=== PATIENT | male | born 1965 | race Caucasian/White ===

== ENCOUNTER 2020-11-11 22:52 | Emergency (ER) | payer OTHER ==
[~2020-11-11] VITALS: Ht 177.8 cm; Wt 75.0 kg
[2020-11-11] MEDS ORDERED: NS 1,000 ML IV ONE (23:00)
[2020-11-11] MEDS ORDERED: ASPI81CH33 PO (23:08)
[2020-11-11] MEDS ORDERED: GABA-845 PO (23:08)
[2020-11-11 23:20] LABS: BASO # 0.1 10^3/uL (0.0-0.2); BASO % 1.3 % (0.0-1.0); EOS # 0.3 10^3/uL (0.0-0.5); HEMATOCRIT 56.6 % (42.0-52.0); HEMOGLOBIN 19.5 g/dl (13.5-17.5); LYMPH # 5.2 10^3/uL (1.5-5.0); LYMPH % 48.1 % (24.0-44.0); MEAN CORPUSCULAR HEMOGLOBIN 33.8 pg (27.0-33.0); MEAN CORPUSCULAR HGB CONC 34.5 g/dl (32.0-36.5); MEAN CORPUSCULAR VOLUME 98.1 fl (80.0-96.0); MONO # 0.7 10^3/uL (0.0-0.8); MONO % 6.7 % (0.0-5.0); NEUTROPHILS # 4.4 10^3/uL (1.5-8.5); NEUTROPHILS % 40.4 % (36.0-66.0); PLATELET COUNT, AUTOMATED 313 10^3/uL (150-450); RED BLOOD COUNT 5.77 10^6/uL (4.30-6.10)
[2020-11-11 23:25] LABS: WHITE BLOOD COUNT 10.8 10^3/uL (4.0-10.0)
[2020-11-11 23:27] VITALS: BP 159/94
[2020-11-11 23:28] LABS: INR 0.98; PROTHROMBIN TIME 13.2 SECONDS (12.5-14.3)
[2020-11-11 23:29] LABS: PARTIAL THROMBOPLASTIN TIME 29.5 SECONDS (24.2-38.5)
--- NOTE | 2020-11-11 23:40 | REPVR ---
PROCEDURE INFORMATION: Exam: XR Chest, 1 View Exam date and time: 11/11/2020 10:55 PM Age: 55 years old Clinical indication: Chest pain; Type not specified TECHNIQUE: Imaging protocol: XR of the chest Views: 1 view. COMPARISON: No relevant prior studies available. FINDINGS: Lungs: Mild atelectasis in the left lung base. Nonspecific 2.3 x 1.3 cm nodular opacity in the left lung base. Right lung is clear. Pleural space: No pleural effusion. No pneumothorax. Heart/Mediastinum: Unremarkable. No cardiomegaly. Diaphragm: Mild elevation of the left hemidiaphragm. Bones/joints: Healed fracture of the left clavicle. IMPRESSION: Mild atelectasis and nonspecific oval nodular opacity in the left lung base. Consider CT follow-up or short-term radiographic follow-up. Electronically signed by: Prabhu Craven On 11/11/2020 23:40:06 PM
[2020-11-12 00:02] LABS: BLOOD UREA NITROGEN 6 MG/DL (7-18); CALCIUM LEVEL 8.4 MG/DL (8.5-10.1); CARBON DIOXIDE LEVEL 26 MEQ/L (21-32); CHLORIDE LEVEL 106 MEQ/L (98-107); CK-MB VALUE MASS 2.3 NG/ML (<3.6); CPK CREATINE PHOSPHOKINASE 161 U/L (39-308); CREATININE FOR GFR 0.95 MG/DL (0.70-1.30); ETHYL ALCOHOL (ETHANOL) 0.372 % (0.000-0.010); GLOMERULAR FILTRATION RATE > 60.0 (>56); GLUCOSE, FASTING 92 MG/DL (70-100); MB/CK RELATIVE INDEX 1.43 (< OR =4); SODIUM LEVEL 142 MEQ/L (136-145); TROPONIN I < 0.02 NG/ML (< 0.10)
[2020-11-12 00:15] VITALS: BP 120/95
[2020-11-12] MEDS ORDERED: ZOFR4TAB16 PO (00:16)
--- NOTE | 2020-11-12 05:35 | ECGEPIP ---
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
[2020-11-13] MEDS ORDERED: LOPR1TAB6 PO (19:06)
[2020-11-13] MEDS ORDERED: ASPI81CH33 PO (19:06)
== END 2020-11-12 00:45 | disposition home or self-care (01) ==
LOC: M ED 22:52
DX: I48.91 Unspecified atrial fibrillation (principal); Z79.899 Other long term (current) drug therapy; Z79.82 Long term (current) use of aspirin; F10.10 Alcohol abuse, uncomplicated; F17.210 Nicotine dependence, cigarettes, uncomplicated
CPT/HCPCS: 36415; 71045; 80048; 82550; 82553; 85025; 85610; 85730; 93005; 93041; 94760; 99285; G0480

== ENCOUNTER 2020-11-13 17:49 | Emergency (ER) | payer OTHER ==
[~2020-11-13] VITALS: Ht 167.6 cm; Wt 68.2 kg
[~2020-11-13 17:49] MED LIST: ASPI81CH33 PO; GABA-845 PO; ZOFR4TAB16 PO
--- OUTSIDE RECORDS SUMMARY | 2020-11-13 17:54 | CCD ---
Author Author [facility] Organization [facility] Address Unknown Phone Unavailable Care Team Providers Care Mortgage Protection Specialist Name Role Phone Sancrown, Maysae SENIOR SSIS DEVELOPER Unavailable Unavailable Sancrown, Maysae SENIOR SSIS DEVELOPER Unavailable Unavailable Sancrown, Maysae SENIOR SSIS DEVELOPER Unavailable Unavailable Sancrown, Maysae SENIOR SSIS DEVELOPER Unavailable Unavailable Sancrown, Maysae SENIOR SSIS DEVELOPER Unavailable Unavailable Sancrown, Maysae SENIOR SSIS DEVELOPER Unavailable Unavailable Sancrown, Maysae SENIOR SSIS DEVELOPER Unavailable Unavailable Sancrown, Maysae SENIOR SSIS DEVELOPER Unavailable Unavailable Sancrown, Maysae SENIOR SSIS DEVELOPER Unavailable Unavailable Sancrown, Maysae SENIOR SSIS DEVELOPER Unavailable Unavailable Sancrown, Maysae SENIOR SSIS DEVELOPER Unavailable Unavailable Sancrown, Maysae SENIOR SSIS DEVELOPER Unavailable Unavailable Sancrown, Maysae SENIOR SSIS DEVELOPER Unavailable Unavailable Sancrown, Maysae SENIOR SSIS DEVELOPER Unavailable Unavailable Sancrown, Maysae SENIOR SSIS DEVELOPER Unavailable Unavailable Sancrown, Maysae SENIOR SSIS DEVELOPER Unavailable Unavailable Sancrown, Maysae SENIOR SSIS DEVELOPER Unavailable Unavailable Sancrown, Maysae SENIOR SSIS DEVELOPER Unavailable Unavailable Sancrown, Maysae SENIOR SSIS DEVELOPER Unavailable Unavailable Sancrown, Maysae SENIOR SSIS DEVELOPER Unavailable Unavailable Sancrown, Maysae SENIOR SSIS DEVELOPER Unavailable Unavailable Sancrown, Maysae SENIOR SSIS DEVELOPER Unavailable Unavailable Sancrown, Maysae SENIOR SSIS DEVELOPER Unavailable Unavailable Sancrown, Maysae SENIOR SSIS DEVELOPER Unavailable Unavailable Sancrown, Maysae SENIOR SSIS DEVELOPER Unavailable Unavailable Sancrown, Maysae SENIOR SSIS DEVELOPER Unavailable Unavailable Sancrown, Maysae SENIOR SSIS DEVELOPER Unavailable Unavailable Sancrown, Maysae SENIOR SSIS DEVELOPER Unavailable Unavailable Sancrown, Maysae SENIOR SSIS DEVELOPER Unavailable Unavailable Sancrown, Maysae SENIOR SSIS DEVELOPER Unavailable Unavailable Sancrown, Maysae SENIOR SSIS DEVELOPER Unavailable Unavailable Sancrown, Maysae SENIOR SSIS DEVELOPER Unavailable Unavailable Sancrown, Maysae SENIOR SSIS DEVELOPER Unavailable Unavailable Sancrown, Maysae SENIOR SSIS DEVELOPER Unavailable Unavailable Sancrown, Maysae SENIOR SSIS DEVELOPER Unavailable Unavailable Sancrown, Maysae SENIOR SSIS DEVELOPER Unavailable Unavailable Sancrown, Maysae SENIOR SSIS DEVELOPER Unavailable Unavailable Sancrown, Maysae SENIOR SSIS DEVELOPER Unavailable Unavailable Sancrown, Maysae SENIOR SSIS DEVELOPER Unavailable Unavailable Re-disclosure Warning The records that you are about to access may contain information from federally-assisted alcohol or drug abuse programs. If such information is present, then the following federally mandated warning applies: This information has been disclosed to you from records protected by federal confidentiality rules (42 CFR part 2). The federal rules prohibit you from making any further disclosure of this information unless further disclosure is expressly permitted by the written consent of the person to whom it pertains or as otherwise permitted by 42 CFR part 2. A general authorization for the release of medical or other information is NOT sufficient for this purpose. The Federal rules restrict any use of the information to criminally investigate or prosecute any alcohol or drug abuse patient.The records that you are about to access may contain highly sensitive health information, the redisclosure of which is protected by Article 27-F of the [facility] Public Health law. If you continue you may have access to information: Regarding HIV / AIDS; Provided by facilities licensed or operated by the [facility] Office of Mental Health; or Provided by the [facility] Office for People With Developmental Disabilities. If such information is present, then the following [facility] mandated warning applies: This information has been disclosed to you from confidential records which are protected by state law. State law prohibits you from making any further disclosure of this information without the specific written consent of the person to whom it pertains, or as otherwise permitted by law. Any unauthorized further disclosure in violation of state law may result in a fine or usp sentence or both. A general authorization for the release of medical or other information is NOT sufficient authorization for further disc losure. Allergies and Adverse Reactions Type Description Substance Reaction Status Data Source(s ) SYSTEMIC NO KNOWN ALLERGIES NO KNOWN ALLERGIES [facility] Family History Family Member Name Family Member Gender Family Member Status Date o f Status Description Data Source(s) Unknown Male Problem MEDENT ([facility]) Unknown Male Problem 03/27/1943 12:00:00 AM -04:00 MEDENT ([facility]) 08/2014 Unknown Unknown Problem MEDENT ([facility]) Unknown Unknown Problem MEDENT ([facility]) Encounters Encounter Providers Location Date Indications Data Source(s ) Attender: Loco White NP 2E-MAYRA 12/30/2019 03:26:1 5 PM EST [facility] Medications Medication Brand Name Start Date Product Form Dose Route Admi nistrative Instructions Pharmacy Instructions Status Indications Reaction Description Data Source(s) 100 mg 10/04/2020 12:00:00 AM EST tablet extended release 24 hr 30 TAKE ONE TABLET BY MOUTH EVERY DAY TAKE ONE TABLET BY MOUTH EVERY DAY SOLD: 10/05/2020 [facility] 1 % 09/17/2020 12:00:00 AM EST cream 45 APPLY TOPICALLY TO AFFECTED AREA(S) TWO TIMES A DAY APPLY TOPICALLY TO AFFECTED AREA(S) TWO TIMES A DAY SO LD: 10/05/2020 [facility] 1 % 09/01/2020 12:00:00 AM EST cream 45 USE 1 APPLICATION TOPICALLY TO AFFECTED AREA TWO TIMES A DAY FOR 28 DAYS USE 1 APPLICATION TOPICALLY TO AFFECTED AREA TWO TIMES A DAY FOR 28 DAYS SOLD: 09/03/2020 [facility] 400 mg 09/01/2020 12:00:00 AM EST capsule 180 TAKE TWO CAPSULES BY MOUTH THREE TIMES A DAY TAKE TWO CAPSULES BY MOUTH THREE TIMES A DAY SOLD: 0 [facility] 100 mg 09/01/2020 12:00:00 AM EST tablet extended release 24 hr 30 TAKE ONE TABLET BY MOUTH EVERY DAY TAKE ONE TABLET BY MOUTH EVERY DAY SOLD: 09/03/2020 [facility] 400 mg 09/01/2020 12:00:00 AM EST capsule 180 TAKE TWO CAPSULES BY MOUTH THREE TIMES A DAY TAKE TWO CAPSULES BY MOUTH THREE TIMES A DAY SOLD: 0 [facility] 81 mg 09/01/2020 12:00:00 AM EST tablet,delayed release (DR/EC) 30 TAKE ONE TABLET BY MOUTH EVERY DAY TAKE ONE TABLET BY MOUTH EVERY DAY SOLD: 09/03/2020 [facility] 81 mg 09/01/2020 12:00:00 AM EST tablet,delayed release (DR/EC) 30 TAKE ONE TABLET BY MOUTH EVERY DAY TAKE ONE TABLET BY MOUTH EVERY DAY SOLD: 10/05/2020 [facility] 800 mg 06/12/2020 12:00:00 AM EDT tablet 100 TAKE ONE TABLET BY MOUTH THREE TIMES A DAY WITH FOOD OR MILK NEEDED TAKE ONE TABLET BY MOUTH THREE TIMES A DAY WITH FOOD OR MILK NEEDED SOLD: 06/12/2020 [facility] 400 mg 06/08/2020 12:00:00 AM EDT capsule 180 TAKE TWO CAPSULES BY MOUTH THREE TIMES A DAY TAKE TWO CAPSULES BY MOUTH THREE TIMES A DAY SOLD: 0 [facility] 1 mg 06/08/2020 12:00:00 AM EDT tablet 30 TAKE ONE TABLET BY MOUTH EVERY DAY TAKE ONE TABLET BY MOUTH EVERY DAY SOLD: 06/12/2020 [facility] 90 mcg/actuation 06/08/2020 12:00:00 AM EDT HFA aerosol inha ler 18 INHALE 2 PUFFS BY MOUTH EVERY 6 HOURS NEEDED INHALE 2 PUFFS BY MOUTH EVERY 6 HOURS NEEDED SOLD: 06/12/2020 [facility] 400 mg 06/08/2020 12:00:00 AM EDT capsule 180 TAKE TWO CAPSULES BY MOUTH THREE TIMES A DAY TAKE TWO CAPSULES BY MOUTH THREE TIMES A DAY SOLD: 0 [facility] 81 mg 05/28/2020 12:00:00 AM EDT tablet,delayed release (DR/EC) 30 TAKE ONE TABLET BY MOUTH EVERY DAY TAKE ONE TABLET BY MOUTH EVERY DAY SOLD: 06/12/2020 [facility] MULTIVITAMIN 05/27/2020 12:00:00 AM EDT tablet 30 TAKE ONE TABLET BY MOUTH EVERY DAY TAKE ONE TABLET BY MOUTH EVERY DAY SOLD: 06/12/2020 [facility] Insurance Providers Payer name Policy type / Coverage type Policy ID Covered constitution party ID Covered constitution party's relationship to ruffin Policy Ruffin Plan Information [facility] [id number] TAURUS [id number] Self [id number] [place] [id number] TAURUS [id number] [place] [id number] Self [id number] TAURUS [id number] Patient [id number] [place] (Med[place] Commercial [id number] Self [id number] [place] Commercial [id number] Self [id number] [place] [id number] Self [id number] [place] [id number] Self [id number] [place] [id number] Self [id number] ev-social BAILEY [id number] SELF [id number] TAURUS [id number] SELF [id number] [place] Commercial [id number] Self [id number] [place] [id number] Self [id number] TAURUS [id number] SELF [id number] [place] Commercial [id number] Self [id number] [place] Commercial [id number] Self [id number] [place] Commercial [id number] Self [id number] [place] [id number] Self [id number] [place] CARE HEA [id number] S [id number] [place] Commercial [id number] Self [id number] [place] Commercial [id number] Self [id number] MEDICAID [id number] Patient [id number] TAURUS [id number] Patient [id number] [place] CARE HEA [id number] Medicaid [facility] Part B Self [place] Medicaid [facility] Part B Self [place] Commercial Self [place] [facility] (O) Self TAURUS CARE HEA [id number] SE [id number] Medicaid [facility] Part B Self MEDICAID HEA [id number] SE [id number] SELF PAY UNAVAILABLE Patient UNAVAILA BLE SELF PAY NOT FUNMILAYO GANDHI Patient NOT MA Kaykay LIG TAURUS [id number] Patient [id number] SELF PAY SELF PAY Patient SELF PAY TOTAL CARE/TODAY'S OPTIONS O [id number] S [id number] TOTAL CARE O [id number] S [id number] SELF PAY 2 UNAVAILABLE 1 UNAVAILA BLE [employer] 2 [id number] [employer] 2 [id number] 1 [id number] TOTAL CARE MEDICAID 2 [id number] [place] 3 [id number] TOTAL CARE W [id number] MEDICAID GME W [id number] [employer] 2 [id number] 1 [id number]
[2020-11-13] MEDS ORDERED: METOPROLOL TART 50 MG TAB PO ONE (18:15)
[2020-11-13] MEDS ORDERED: ONDANSETRON 4MG/2ML VIAL IV ONE (18:15)
[2020-11-13] MEDS ORDERED: NS 1,000 ML IV ONE (18:15)
[2020-11-13] MEDS ORDERED: PANTOPRAZOLE 40MG VIAL (C9113 PER 1) IV ONE (18:15)
--- OUTSIDE RECORDS SUMMARY | 2020-11-13 18:17 | CCD ---
Author Author [facility] Organization [facility] Address Unknown Phone Unavailable Care Team Providers Care Deck Supervisor Name Role Phone Sancrown, Maysae SKI LIFT ATTENDANT Unavailable Unavailable Sancrown, Maysae SKI LIFT ATTENDANT Unavailable Unavailable Sancrown, Maysae SKI LIFT ATTENDANT Unavailable Unavailable Sancrown, Maysae SKI LIFT ATTENDANT Unavailable Unavailable Sancrown, Maysae SKI LIFT ATTENDANT Unavailable Unavailable Sancrown, Maysae SKI LIFT ATTENDANT Unavailable Unavailable Sancrown, Maysae SKI LIFT ATTENDANT Unavailable Unavailable Sancrown, Maysae SKI LIFT ATTENDANT Unavailable Unavailable Sancrown, Maysae SKI LIFT ATTENDANT Unavailable Unavailable Sancrown, Maysae SKI LIFT ATTENDANT Unavailable Unavailable Sancrown, Maysae SKI LIFT ATTENDANT Unavailable Unavailable Sancrown, Maysae SKI LIFT ATTENDANT Unavailable Unavailable Sancrown, Maysae SKI LIFT ATTENDANT Unavailable Unavailable Sancrown, Maysae SKI LIFT ATTENDANT Unavailable Unavailable Sancrown, Maysae SKI LIFT ATTENDANT Unavailable Unavailable Sancrown, Maysae SKI LIFT ATTENDANT Unavailable Unavailable Sancrown, Maysae SKI LIFT ATTENDANT Unavailable Unavailable Sancrown, Maysae SKI LIFT ATTENDANT Unavailable Unavailable Sancrown, Maysae SKI LIFT ATTENDANT Unavailable Unavailable Sancrown, Maysae SKI LIFT ATTENDANT Unavailable Unavailable Sancrown, Maysae SKI LIFT ATTENDANT Unavailable Unavailable Sancrown, Maysae SKI LIFT ATTENDANT Unavailable Unavailable Sancrown, Maysae SKI LIFT ATTENDANT Unavailable Unavailable Sancrown, Maysae SKI LIFT ATTENDANT Unavailable Unavailable Sancrown, Maysae SKI LIFT ATTENDANT Unavailable Unavailable Sancrown, Maysae SKI LIFT ATTENDANT Unavailable Unavailable Sancrown, Maysae SKI LIFT ATTENDANT Unavailable Unavailable Sancrown, Maysae SKI LIFT ATTENDANT Unavailable Unavailable Sancrown, Maysae SKI LIFT ATTENDANT Unavailable Unavailable Sancrown, Maysae SKI LIFT ATTENDANT Unavailable Unavailable Sancrown, Maysae SKI LIFT ATTENDANT Unavailable Unavailable Sancrown, Maysae SKI LIFT ATTENDANT Unavailable Unavailable Sancrown, Maysae SKI LIFT ATTENDANT Unavailable Unavailable Sancrown, Maysae SKI LIFT ATTENDANT Unavailable Unavailable Sancrown, Maysae SKI LIFT ATTENDANT Unavailable Unavailable Sancrown, Maysae SKI LIFT ATTENDANT Unavailable Unavailable Sancrown, Maysae SKI LIFT ATTENDANT Unavailable Unavailable Sancrown, Maysae SKI LIFT ATTENDANT Unavailable Unavailable Sancrown, Maysae SKI LIFT ATTENDANT Unavailable Unavailable Re-disclosure Warning The records that [...] is protected by Article 27-F of the [facility] Public Health law. If you continue you may have access to information: Regarding HIV / AIDS; Provided by facilities licensed or operated by the [facility] Office of Mental Health; or Provided by the [facility] Office for People With Developmental Disabilities. If such information is present, then the following [facility] mandated warning applies: This information has [...] SYSTEMIC NO KNOWN ALLERGIES NO KNOWN ALLERGIES [facility] Family History Family Member Name Family Member Gender Family Member Status Date o f Status Description Data Source(s) Unknown Male Problem MEDENT ([facility]) Unknown Male Problem 03/27/1943 12:00:00 AM -04:00 MEDENT ([facility]) 08/2014 Unknown Unknown Problem MEDENT ([facility]) Unknown Unknown Problem MEDENT ([facility]) Encounters Encounter Providers Location Date Indications Data Source(s ) Attender: Loco White NP 2E-MAYRA 12/30/2019 03:26:[address] [facility] Medications Medication Brand Name Start Date Product [...] party ID Covered constitution party's relationship to moore Policy Moore Plan Information TAURUS [id number] SP [id number] TAURUS [id number] SP [id number] TAURUS [id number] Self [id number] [place] [id number] TAUR[place] [id number] [place] [id number] Self [id number] TAURUS [id number] Patient [id number] [place] (Medicaid Commercial [id number] Self [id number] [place] [employer] [place] Commercial [id number] Self [id number] [place] Commercial [id number] Self [id number] [place] Commercial [id number] Self [id number] [place] Commercial [id number] Self [id number] Cleanify BAILEY [id number] SELF [id number] TAURUS [id number] SELF [id number] [place] Commercial [id number] Self [id number] [place] Commercial [id number] Self [id number] TAURUS [id number] SELF [id number] [place] Commercial [id number] Self [id number] [place] Commercial [id number] Self [id number] [place] Commercial [id number] Self [id number] [place] Commercial [id number] Self [id number] TA[place] CARE HEA [id number] S [id number] [place] [employer] [place] Commercial [id number] Self [id number] [place] Commercial [id number] Self [id number] MEDICAID [id number] Patient [id number] TAURUS [id number] Patient [id number] TA[place] CARE HEA [id number] Medicaid [facility] Part B Self [place] Medicaid [facility] Part B Self [place] Commercial Self [place] Health Maintenance [employer] (HMO) Self TA[place] CARE HEA [id number] SE [id number] Medicaid [facility] Part B Self MEDICAID HEA [id number] SE [id number] SELF PAY UNAVAILABLE Patient UNAVAILA BLE SELF PAY NOT MA SANTAG Patient NOT MA E LIG TAURUS [id number] Patient [id number] SELF PAY SELF PAY Patient SELF PAY TOTAL CARE/TODAY'S OPTIONS O [id number] S [id number] TOTAL CARE O [id number] S [id number] SELF PAY 2 UNAVAILABLE 1 UNAVAILA BLE [employer] 2 [id number] [employer] 2 [id number] TOTAL CARE MEDICAID 2 [id number] [place] 3 [id number] TOTAL CARE W [id number] S [id number] MEDICAID GME W [id number] K [employer] 2 [id number]
[2020-11-13] MEDS: METOPROLOL 5 MG/5 ML VIAL IV SCH ×3 (18:18→19:22)
[2020-11-13 18:20] LABS: BASO # 0.1 10^3/uL (0.0-0.2); BASO % 1.2 % (0.0-1.0); EOS # 0.2 10^3/uL (0.0-0.5); EOS % 2.1 % (0.0-3.0); HEMATOCRIT 53.8 % (42.0-52.0); HEMOGLOBIN 18.1 g/dl (13.5-17.5); LYMPH # 4.3 10^3/uL (1.5-5.0); LYMPH % 38.4 % (24.0-44.0); MEAN CORPUSCULAR HEMOGLOBIN 33.5 pg (27.0-33.0); MEAN CORPUSCULAR HGB CONC 33.6 g/dl (32.0-36.5); MEAN CORPUSCULAR VOLUME 99.6 fl (80.0-96.0); MONO # 0.7 10^3/uL (0.0-0.8); MONO % 6.5 % (0.0-5.0); NEUTROPHILS # 5.7 10^3/uL (1.5-8.5); NEUTROPHILS % 51.4 % (36.0-66.0); PLATELET COUNT, AUTOMATED 246 10^3/uL (150-450); WHITE BLOOD COUNT 11.1 10^3/uL (4.0-10.0)
[2020-11-13 18:30] LABS: INR 0.99; PROTHROMBIN TIME 13.3 SECONDS (12.5-14.3)
[2020-11-13 19:01] LABS: ALBUMIN 3.3 GM/DL (3.2-5.2); ALT/SGPT 47 U/L (12-78); BILIRUBIN,DIRECT 0.2 MG/DL (0.0-0.2); BILIRUBIN,TOTAL 0.6 MG/DL (0.2-1.0); BLOOD UREA NITROGEN 7 MG/DL (7-18); CALCIUM LEVEL 8.3 MG/DL (8.5-10.1); CARBON DIOXIDE LEVEL 25 MEQ/L (21-32); CHLORIDE LEVEL 106 MEQ/L (98-107); CREATININE FOR GFR 0.98 MG/DL (0.70-1.30); ETHYL ALCOHOL (ETHANOL) 0.455 % (0.000-0.010); GLOMERULAR FILTRATION RATE > 60.0 (>56); GLUCOSE, FASTING 84 MG/DL (70-100); LIPASE 73 U/L (73-393); POTASSIUM SERUM 4.1 MEQ/L (3.5-5.1); SODIUM LEVEL 141 MEQ/L (136-145); TOTAL PROTEIN 7.5 GM/DL (6.4-8.2)
[2020-11-13] MEDS ORDERED: LOPR1TAB6 PO (19:06)
[2020-11-13] MEDS ORDERED: ASPI81CH33 PO (19:06)
--- NOTE | 2020-11-13 19:21 | REP ---
INDICATION: abd pain. COMPARISON: None. TECHNIQUE: Supine and erect views the abdomen are performed, as well as a frontal view of the chest. FINDINGS: There is no evidence of free intraperitoneal air. There are mildly dilated small bowel loops in the upper abdomen. There is mild air scattered throughout the colon. Mild air is seen in the nondistended stomach. Vascular calcifications are seen in the pelvis. There are mild degenerative changes of the spine. There is mild elevation of left hemidiaphragm. There appears to be mild bibasilar fibro atelectatic change. Heart mediastinum are unremarkable. IMPRESSION: No free air. Several mildly dilated small bowel loops in the upper abdomen. This may represent an ileus but some degree of small bowel obstruction cannot totally be excluded. <Electronically signed by Aaron Desai > 11/13/201916
[2020-11-13 19:22] VITALS: BP 117/79
[2020-11-13] MEDS ORDERED: METOCLOPRAMIDE INJ 10MG/2ML VIAL (J2765 PER 1) IV ONE (19:45)
[2020-11-13] MEDS ORDERED: LORazepam 2 MG/ML VIAL IV STA (19:48)
[2020-11-13 22:15] VITALS: BP 105/61
== END 2020-11-13 23:00 | disposition left against medical advice (07) ==
LOC: MERGE 17:49 → M ED 17:49
DX: F10.129 Alcohol abuse with intoxication, unspecified (principal); R10.9 Unspecified abdominal pain; Z53.9 Procedure and treatment not carried out, unspecified reason; F17.200 Nicotine dependence, unspecified, uncomplicated; Z79.82 Long term (current) use of aspirin; Z79.899 Other long term (current) drug therapy
CPT/HCPCS: 74021; 80048; 80076; 83690; 85025; 85610; 93041; 96361; 96374; 96375; 99284; C9113; G0480; J2060; J2405; J2765

== ENCOUNTER 2021-01-19 22:39 | Emergency (ER) | payer OTHER ==
[~2021-01-19] VITALS: Ht 180.3 cm; Wt 85.0 kg
[~2021-01-19 22:39] MED LIST changes: +LOPR1TAB6 PO
[2021-01-19] MEDS ORDERED: METOPROLOL TART 50 MG TAB PO ONE (23:00)
[2021-01-19] MEDS ORDERED: NS 1,000 ML IV ONE (23:00)
[2021-01-19] MEDS: METOPROLOL 5 MG/5 ML VIAL IV SCH ×3 (23:22→23:46)
[2021-01-19 23:26] LABS: BASO # 0.1 10^3/uL (0.0-0.2); BASO % 1.3 % (0.0-1.0); EOS # 0.4 10^3/uL (0.0-0.5); HEMATOCRIT 50.8 % (42.0-52.0); HEMOGLOBIN 17.2 g/dl (13.5-17.5); LYMPH # 4.7 10^3/uL (1.5-5.0); LYMPH % 46.7 % (24.0-44.0); MEAN CORPUSCULAR HEMOGLOBIN 33.1 pg (27.0-33.0); MEAN CORPUSCULAR HGB CONC 33.9 g/dl (32.0-36.5); MEAN CORPUSCULAR VOLUME 97.7 fl (80.0-96.0); MONO # 0.8 10^3/uL (0.0-0.8); MONO % 8.1 % (2.0-8.0); NEUTROPHILS % 39.2 % (36.0-66.0); PLATELET COUNT, AUTOMATED 295 10^3/uL (150-450); WHITE BLOOD COUNT 10.1 10^3/uL (4.0-10.0)
--- NOTE | 2021-01-19 23:44 | REPVR ---
PROCEDURE INFORMATION: Exam: XR Chest Exam date and time: 01/19/2021 11:12 PM Age: 55 years old Clinical indication: Other: Chest pain TECHNIQUE: Imaging protocol: XR of the chest Views: 1 view. COMPARISON: CR Abdomen,Flat Upright,PA CHEST 2020-11-13 18:11 FINDINGS: Lungs: Left basilar trace subsegmental atelectasis and or effusion. Pleural spaces: No pneumothorax. Heart/Mediastinum: Unremarkable. No cardiomegaly. Bones/joints: Unremarkable. IMPRESSION: Left basilar trace subsegmental atelectasis and or effusion. Electronically signed by: Don Muñoz On 01/19/2021 23:44:14 PM
[2021-01-20] MEDS ORDERED: LORazepam 2 MG/ML VIAL IV STA (00:05)
[2021-01-20] MEDS: METOPROLOL 5 MG/5 ML VIAL IV SCH ×3 (00:10→00:17)
[2021-01-20 00:17] VITALS: BP 115/85
[2021-01-20 00:17] LABS: BLOOD UREA NITROGEN 6 MG/DL (7-18); CALCIUM LEVEL 8.3 MG/DL (8.5-10.1); CARBON DIOXIDE LEVEL 29 MEQ/L (21-32); CHLORIDE LEVEL 107 MEQ/L (98-107); CK-MB VALUE MASS 1.8 NG/ML (<3.6); CPK CREATINE PHOSPHOKINASE 136 U/L (39-308); CREATININE FOR GFR 0.83 MG/DL (0.70-1.30); ETHYL ALCOHOL (ETHANOL) 0.342 % (0.000-0.010); FREE T4 0.89 NG/DL (0.76-1.46); GLOMERULAR FILTRATION RATE > 60.0 (>56); GLUCOSE, FASTING 92 MG/DL (70-100); MAGNESIUM LEVEL 2.2 MG/DL (1.8-2.4); MB/CK RELATIVE INDEX 1.32 (< OR =4); POTASSIUM SERUM 4.1 MEQ/L (3.5-5.1); SODIUM LEVEL 142 MEQ/L (136-145)
[2021-01-20] MEDS ORDERED: DIGOXIN INJ 0.5 MG/2 ML AMP (J1160) IV ONE (01:15)
--- NOTE | 2021-01-20 02:12 | ECGEPIP ---
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
[2021-01-20] MEDS ORDERED: DIGOXIN 0.125 MG TAB PO ONE ×2 (02:40→04:50)
[2021-01-20 04:40] VITALS: BP 106/76
[2021-01-20] MEDS ORDERED: LOPR1TAB6 PO (05:39)
== END 2021-01-20 06:12 | disposition home or self-care (01) ==
LOC: M ED 22:39
DX: I48.91 Unspecified atrial fibrillation (principal); F10.220 Alcohol dependence with intoxication, uncomplicated; F43.10 Post-traumatic stress disorder, unspecified; F17.200 Nicotine dependence, unspecified, uncomplicated; R91.8 Other nonspecific abnormal finding of lung field; Z91.14 Patient's other noncompliance with medication regimen; Z96.653 Presence of artificial knee joint, bilateral
CPT/HCPCS: 71045; 80048; 82077; 82550; 82553; 83735; 84439; 84443; 85025; 93005; 93041; 94760; 96361; 96374; 96375; 99291; J1160; J2060

== ENCOUNTER 2021-05-19 15:07 | Inpatient (IN) | payer OTHER ==
[~2021-05-19] VITALS: Ht 180.3 cm; Wt 77.4 kg
[~2021-05-19 15:07] MED LIST changes: +GABA-283 PO; -GABA-845 PO
[2021-05-19] MEDS ORDERED: NS 1,000 ML IV ONE (15:40)
[2021-05-19] MEDS ORDERED: LIDOCAINE 2% 5ML JELLY UROJET TOP ONE (15:40)
--- NOTE | 2021-05-19 15:54 | REP ---
INDICATION: stroke like symptoms. COMPARISON: None. TECHNIQUE: CT BRAIN PERFORMED IN THE AXIAL PLANE. CORONAL RECONSTRUCTION IMAGES ARE PERFORMED. FINDINGS: . lateral ventricles are midline symmetric mildly prominent as are the 3rd and 4th ventricles there is diffuse cerebral atrophy which is much greater than I would expect for his stated age in this is greatest in the temporal and frontal lobes. 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 There are multiple zones of hypodensity in the bilateral cerebellar hemispheres consistent with encephalomalacia and old infarcts. I do not see vascular territory infarct, intracranial hemorrhage, mass effect or edema. Heterogeneous low-attenuation white matter changes bilaterally are consistent with chronic small vessel ischemic disease. No intra or extra-axial hemorrhage, mass or mass effect identified. There is no posterior fossa hemorrhage or mass. Basal cisterns are intact. There are vascular calcifications in the carotid siphons, heavier right than left. Mastoid aeration grossly symmetric and without opacification. The visualized sinuses show some mucosal thickening on the right maxillary and left sphenoid air cells. Skull base and calvarium are without fracture or focal lesion. Some deviation of the nasal septum towards the left. IMPRESSION: 1. 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 No vascular territory or other acute infarct, intracranial hemorrhage, mass or mass effect. 2. Ventriculomegaly with proportionate atrophy although that atrophy is much greater than I would expect for the stated age. 3. Right maxillary and left sphenoid sinus mucosal thickening with the other sinuses and mastoids clear. Skull base and calvarium without acute finding. <Electronically signed by Herbert Quinteros > 05/19/21 [id number]
[2021-05-19 16:10] LABS: HEMATOCRIT 56.6 % (42.0-52.0); HEMOGLOBIN 19.6 g/dl (13.5-17.5); MEAN CORPUSCULAR HEMOGLOBIN 33.7 pg (27.0-33.0); MEAN CORPUSCULAR HGB CONC 34.6 g/dl (32.0-36.5); MEAN CORPUSCULAR VOLUME 97.3 fl (80.0-96.0); PLATELET COUNT, AUTOMATED 262 10^3/uL (150-450); RED BLOOD COUNT 5.82 10^6/uL (4.30-6.10)
--- NOTE | 2021-05-19 16:30 | REP ---
INDICATION: Altered Mental Status. COMPARISON: 01/19/2021 TECHNIQUE: AP portable semi-erect FINDINGS: Lungs only marginally adequate in the degree of inflation. There is some curvilinear atelectatic change above the left diaphragm which is slightly elevated as before. No definite effusion on the right. Some blunting of the left CP angle, could be scar or small effusion. The mid and upper lung zones are clear. There is no cardiomegaly, vascular redistribution or pulmonary edema. The aorta is normal for age. There is no widening of the mediastinum. Airway intact. Visualized bones show minor degenerative changes at the shoulders and spine. No free air under the diaphragm. IMPRESSION: 1. Curvilinear fibrotic or atelectatic change in the left base just above the diaphragm, not present on previous study 4 months ago. No dense consolidation, definite effusion, cardiomegaly or edema. 2. Minor degenerative changes without acute bony finding. No free air under the diaphragm. <Electronically signed by Herbert Quinteros > 05/19/21 [id number]
[2021-05-19] MEDS ORDERED: ISOVUE-370 76% 100ML VIAL As Ordered ONE (16:41)
[2021-05-19 16:44] LABS: ACETAMINOPHEN LEVEL < 2.0 UG/ML (10.0-30.0); ALBUMIN 2.8 GM/DL (3.2-5.2); ALT/SGPT 27 U/L (12-78); BILIRUBIN,DIRECT 0.6 MG/DL (0.0-0.2); BILIRUBIN,TOTAL 1.6 MG/DL (0.2-1.0); BLOOD UREA NITROGEN 16 MG/DL (7-18); CALCIUM LEVEL 8.2 MG/DL (8.5-10.1); CARBON DIOXIDE LEVEL 21 MEQ/L (21-32); CHLORIDE LEVEL 107 MEQ/L (98-107); CREATININE FOR GFR 1.07 MG/DL (0.70-1.30); ETHYL ALCOHOL (ETHANOL) 0.004 % (0.000-0.010); GLOMERULAR FILTRATION RATE > 60.0 (>56); GLUCOSE, FASTING 85 MG/DL (70-100); POTASSIUM SERUM 3.7 MEQ/L (3.5-5.1); SALICYLATE LEVEL < 1.7 MG/DL (5.0-30.0); SODIUM LEVEL 143 MEQ/L (136-145); THYROID STIMULATING HORMONE 0.937 uIU/ML (0.358-3.740); TOTAL PROTEIN 7.2 GM/DL (6.4-8.2)
[2021-05-19 17:01] LABS: WHITE BLOOD COUNT 17.5 10^3/uL (4.0-10.0)
[2021-05-19 17:10] LABS: RSV AMPLIFICATION NEGATIVE (NEGATIVE)
[2021-05-19 17:11] LABS: INR 1.16; PROTHROMBIN TIME 15.1 SECONDS (12.5-14.3)
[2021-05-19 17:12] LABS: PARTIAL THROMBOPLASTIN TIME 29.3 SECONDS (24.2-38.5)
[2021-05-19 17:13] LABS: LYMPHOCYTES 13 % (16-44); NEUTROPHILS 75 % (28-66)
[2021-05-19 17:14] LABS: ATYPICAL LYMPH 5 % (0-5); MONOCYTES 6 % (0-5); PLATELET ESTIMATE NORMAL (NORMAL)
[2021-05-19 17:24] LABS: AMPHETAMINES LEVEL URINE NEGATIVE (NEGATIVE); BARBITURATES URINE NEGATIVE (NEGATIVE); BENZODIAZEPINES URINE NEGATIVE (NEGATIVE); CANNABINOIDS URINE NEGATIVE (NEGATIVE); COCAINE METABOLITE URINE NEGATIVE (NEGATIVE); METHADONE URINE NEGATIVE (NEGATIVE); OPIATES URINE NEGATIVE (NEGATIVE); PHENCYCLIDINE URINE NEGATIVE (NEGATIVE)
[2021-05-19 17:25] LABS: CPK CREATINE PHOSPHOKINASE 1828 U/L (39-308); MB/CK RELATIVE INDEX 0.82 (< OR =4); TROPONIN I < 0.02 NG/ML (< 0.10)
--- NOTE | 2021-05-19 17:41 | REPVR ---
PROCEDURE INFORMATION: Exam: CT Angiography Neck With Contrast Exam date and time: 05/19/2021 4:59 PM Age: 55 years old Clinical indication: Other: CVA; Additional info: CVA - nursing interventions must not delay CT TECHNIQUE: Imaging protocol: Computed tomography angiography of the neck with contrast. 3D rendering (Not supervised by radiologist): MIP and/or 3D reconstructed images were created by the technologist. Radiation optimization: All CT scans at this facility use at least one of these dose optimization techniques: automated exposure control; mA and/or kV adjustment per patient size (includes targeted exams where dose is matched to clinical indication); or iterative reconstruction. Contrast material: ISOVUE 370; Contrast volume: 75 ml; Contrast route: INTRAVENOUS (IV); COMPARISON: CT Spine,cervical w/o contrast 05/19/2021 4:39 PM FINDINGS: Right common carotid artery: No stenosis. No dissection or occlusion. Right internal carotid artery: Atherosclerotic calcifications are present at the right carotid bifurcation and within the proximal right internal carotid artery. This is causing approximately 40% stenosis of the right ICA origin. Right external carotid artery: There is severe stenosis of the right external carotid artery origin. Left common carotid artery: There is mild narrowing of the distal left common carotid artery. Left internal carotid artery: Atherosclerotic calcifications are present at the left carotid bifurcation and within the proximal left internal carotid artery. This is causing approximately 25% stenosis. Left external carotid artery: There is critical stenosis and near occlusion of the left external carotid artery origin. Right vertebral artery: The right vertebral artery is severely hypoplastic. No flow is identified in the distal right vertebral artery beginning at the C1 level. Left vertebral artery: No stenosis. No dissection or occlusion. Left subclavian artery: Mild/moderate atherosclerotic narrowing of the left subclavian artery origin is present. There is nonocclusive clot floating within the lumen of the proximal left subclavian artery. Soft tissues: Normal. No significant soft tissue swelling. Bones/joints: Moderate degenerative changes of the cervical spine are present. Lungs: Mild centrilobular emphysema is present in the upper lobes. IMPRESSION: 1. Nonocclusive clot floating within the lumen of the proximal left subclavian artery. 2. No flow is identified in the distal right vertebral artery beginning at the C1 level. 3. Chronic findings as discussed above. REFERENCES: NASCET CRITERIA. The degree of internal carotid artery stenosis is based on NASCET criteria. Normal is no stenosis. Mild is less than 50% stenosis. Moderate is 50-69% stenosis. Severe is 70% to 99% stenosis. Total occlusion is no detectable patent lumen. Electronically signed by: Ruslan Zepeda On 05/19/2021 17:40:24 PM
[2021-05-19] MEDS ORDERED: NS 1,550 ML in IV 1 EA IV ONE (17:45)
[2021-05-19] MEDS ORDERED: PIPERACILLIN/TAZOBACTAM SOD 4.5 GM in D5W MINI-BAG PLUS 50 ML IV ONE (17:45)
--- NOTE | 2021-05-19 17:48 | REPVR ---
PROCEDURE INFORMATION: Exam: CT Angiography Head With Contrast, Arteriography Exam date and time: 05/19/2021 4:59 PM Age: 55 years old Clinical indication: Other: CVA; Additional info: CVA - nursing interventions must not delay CT TECHNIQUE: Imaging protocol: Computed tomography angiography of the head with contrast. Exam focused on the arteries. 3D rendering (Not supervised by radiologist): MIP and/or 3D reconstructed images were created by the technologist. Radiation optimization: All CT scans at this facility use at least one of these dose optimization techniques: automated exposure control; mA and/or kV adjustment per patient size (includes targeted exams where dose is matched to clinical indication); or iterative reconstruction. Contrast material: ISOVUE 370; Contrast volume: 75 ml; Contrast route: INTRAVENOUS (IV); COMPARISON: CT Head without contrast 05/19/2021 3:25 PM FINDINGS: ANTERIOR CIRCULATION: Right internal carotid artery: Atherosclerotic calcifications are seen involving the right cavernous internal carotid artery. There is no significant stenosis. No occlusion or aneurysm. Right middle cerebral artery: Unremarkable. No occlusion or significant stenosis. No aneurysm. Right anterior cerebral artery: Unremarkable. No occlusion or significant stenosis. No aneurysm. Left internal carotid artery: Atherosclerotic calcifications are seen involving the left cavernous internal carotid artery. There is no significant stenosis. No occlusion or aneurysm. Left middle cerebral artery: Unremarkable. No occlusion or significant stenosis. No aneurysm. Left anterior cerebral artery: Unremarkable. No occlusion or significant stenosis. No aneurysm. POSTERIOR CIRCULATION: Right vertebral artery: There is occlusion of the distal right vertebral artery. Left vertebral artery: Slow flow is identified in the distal left vertebral artery. Basilar artery: There is occlusion of the basilar artery. Minor collateral flow is present in the basilar tip. Right posterior cerebral artery: The right posterior cerebral artery is patent, supplied by a right posterior communicating artery. Left posterior cerebral artery: The left posterior cerebral artery is patent, supplied by a left posterior communicating artery. IMPRESSION: 1. Occluded basilar artery. Collateral flow is present in the basilar tip and bilateral posterior cerebral arteries. 2. Occluded distal right vertebral artery 3. THIS REPORT CONTAINS FINDINGS THAT MAY BE CRITICAL TO PATIENT CARE. The findings were verbally communicated via telephone conference with KATIUSKA ARVIZU at 5:47 PM EDT on 05/19/2021. The findings were acknowledged and understood. Electronically signed by: Ruslan Zepeda On 05/19/2021 17:47:48 PM
--- NOTE | 2021-05-19 17:52 | REPVR ---
PROCEDURE INFORMATION: Exam: CT Cervical Spine Without Contrast Exam date and time: 05/19/2021 4:59 PM Age: 55 years old Clinical indication: Other: CVA; Additional info: CVA - nursing interventions must not delay CT TECHNIQUE: Imaging protocol: Computed tomography images of the cervical spine without contrast. Radiation optimization: All CT scans at this facility use at least one of these dose optimization techniques: automated exposure control; mA and/or kV adjustment per patient size (includes targeted exams where dose is matched to clinical indication); or iterative reconstruction. COMPARISON: CT Head without contrast 05/19/2021 3:25 PM FINDINGS: Bones/joints: No acute fracture. Normal alignment. Discs/Spinal canal/Neural foramina: Severe degenerative changes of the cervical spine are present. There is at least moderate spinal canal stenosis at C3-C4 and C5-C6. Multilevel neural foraminal narrowing from uncinate spurring and facet arthropathy is noted. Lungs: Lung apices are normal. Vasculature: Atherosclerotic calcifications are present at the carotid bifurcations. Soft tissues: Unremarkable. IMPRESSION: 1. No acute abnormality. 2. Chronic findings as discussed above. Electronically signed by: Ruslan Zepeda On 05/19/2021 17:51:59 PM
[2021-05-19 18:29] LABS: HEPATITIS B SURFACE ANTIGEN NEGATIVE (NEGATIVE)
[2021-05-19] MEDS ORDERED: COMMENTS (18:47)
[2021-05-19] MEDS ORDERED: ASPI81TA26 PO (18:47)
[2021-05-19] MEDS ORDERED: METO50TA7 PO (18:47)
[2021-05-19] MEDS ORDERED: HOME MED LIST COMPLETE! XX SCH (18:50)
[2021-05-19 18:59] LABS: HIV SCREEN CENTAUR SOURCE NEGATIVE (NEGATIVE)
[2021-05-19] MEDS ORDERED: NS 2,000 ML IV ONE (19:10)
[2021-05-19] MEDS ORDERED: GLUCOSE 4GM CHEW TABLET PO PRN (19:20)
[2021-05-19] MEDS ORDERED: DEXTROSE 50% 50 ML SYRINGE IV PRN (19:20)
[2021-05-19] MEDS ORDERED: GLUCAGON INJ 1MG VIAL SC PRN (19:20)
[2021-05-19] MEDS ORDERED: diltiaZEM 125 MG in NS 100 ML IV SCH ×2 (20:30→23:22)
--- NOTE | 2021-05-19 21:00 | IPNPDOC ---
Date Seen The patient was seen on 05/19/21. Progress Note EMERGENCY CONTACT INFORMATION: may give HIPAA-protected medical information to the following family members: SON-scooter carter [phone] EX-()-godfrey carter [phone] GIRLFRIEND-Sonia Razo-[phone] CODE STATUS: DO NOT RESUSCITATE/DO NOT INTUBATE MOLST FORM SIGNED BY SON VS, I&O, 24H, Fishbone Vital Signs/I&O Vital Signs Date Time Temp Pulse Resp B/P (MAP) Pulse Ox O2 Delivery O2 Flow Rate FiO2 05/19/21 20:19 100.9 28 96 Nasal Cannula 2.0 05/19/21 20:15 132 121/61 (81) Laboratory Data 24H LABS Laboratory Tests 2 05/19/21 15:46: POC Glucose (Misc Panel) 96, POC Sodium (Misc Panel) 142, POC Potassium (Misc Panel) 3.6, POC Chloride (Misc Panel) 102, POC Total CO2 (Misc Panel) 21.0L, POC Blood Urea Nitrogen (Misc Panel 18, POC Ionized Calcium (Misc Panel) 4.2L, POC Creatinine (Misc Panel) 1.0, POC Hematocrit (Misc Panel) 58.0H 05/19/21 15:51: Prothrombin Time 15.1H, Prothromb Time International Ratio 1.16, Activated Partial Thromboplast Time 29.3 05/19/21 15:53: Neutrophils (%) (Auto) , Nucleated Red Blood Cells % (auto) 0.0, Neutrophils 75H, Band Neutrophils 1, Lymphocytes (Manual) 13L, Monocytes (Manual) 6H, Atypical Lymphocytes 5, Platelet Estimate NORMAL, Urine Color MEMO, Urine Appearance HAZY, Urine pH 5.0, Urine Specific [place] 1.020, Urine Protein NEGATIVE, Urine Glucose (UA) NEGATIVE, Urine Ketones TRACEH, Urine Blood NEGATIVE, Urine Nitrite NEGATIVE, Urine Bilirubin 1+H, Urine Urobilinogen 4.0H, Urine Leukocyte Esterase NEGATIVE, Urine WBC (Auto) 2, Urine RBC (Auto) 3, Urine Hyaline Casts (Auto) 7, Urine Bacteria (Auto) NEGATIVE, Urine Squamous Epithelial Cells 0, Urine Mucus (Auto) MODERATE, Urine Sperm (Auto) , Anion Gap 15, Glomerular Filtration Rate > 60.0, Lactic Acid Level 2.7*H, Calcium Level 8.2L, Total Bilirubin 1.6H, Direct Bilirubin 0.6H, Aspartate Amino Transf (AST/SGOT) 62H, Alanine Aminotransferase (ALT/SGPT) 27, Alkaline Phosphatase 95, Ammonia 17, Total Creatine Kinase 1828H, Creatine Kinase MB 15.0H, Creatine Kinase MB Relative Index 0.82, Troponin I < 0.02, Total Protein 7.2, Albumin 2.8L, Albumin/Globulin Ratio 0.6, Thyroid Stimulating Hormone (TSH) 0.937, Salicylates Level < 1.7L, Urine Opiates Screen NEGATIVE, Urine Methadone Screen NEGATIVE, Acetaminophen Level < 2.0L, Urine Barbiturates Screen NEGATIVE, Urine Phencyclidine Screen NEGATIVE, Urine Amphetamines Screen NEGATIVE, Urine Benzodiazepines Screen NEGATIVE, Urine Cocaine Metabolite Screen NEGATIVE, Urine Cannabinoids Screen NEGATIVE, Ethyl Alcohol Level 0.004, Coronavirus (COVID- 19)(PCR) NEGATIVE, Hepatitis B Surface Antigen NEGATIVE, Hepatitis C Antibody Index 0.0, HIV Antigen/Antibody Combo Qual NEGATIVE, Influenza Type A (RT-PCR) NEGATIVE, Influenza Type B (RT-PCR) NEGATIVE, Respiratory Syncytial Virus (PCR) NEGATIVE 05/19/21 15:56: POC Total CO2 (Misc Panel) 19.0L, POC pH (Misc Panel) 7.413, POC Base Excess (Misc Panel) -7.0L, POC Saturated Percent O2 (Misc) 98, POC pO2 (Misc Panel) 101.0, POC pCO2 (Misc Panel) 28.1L, POC HCO3 (Misc Panel) 17.9L 05/19/21 17:55: POC Prothrombin Time (Misc) 15.9H, POC INR (Misc) 1.3 05/19/21 20:03: CBC/BMP Laboratory Tests 05/19/21 15:53 Microbiology Microbiology 05/19/21 Blood Culture, Received Pending 05/19/21 Blood Culture, Received Pending CORAL SLOAN MD May 19, 2021 21:00
[2021-05-19] MEDS ORDERED: D5W/0.45% SODIUM CHLORIDE 1,000 ML IV SCH (21:30)
[2021-05-19] MEDS ORDERED: ACETAMINOPHEN 650 MG SUPP PR PRN (21:55)
[2021-05-19] MEDS: VANCOMYCIN HCL 1,000 MG, VIAL MATE ADAPTER 1 EACH in NS 250 ML IV SCH (22:00)
[2021-05-19 22:04] VITALS: BP 146/82
--- NOTE | 2021-05-19 22:41 | HPEPDOC ---
[facility] Medical History & Physical Date of Admission May 19, 2021 Date of Service: May 19, 2021 History and Physical CHIEF COMPLAINT: Unresponsive HISTORY OF PRESENT ILLNESS: Patient is unresponsive Information obtained from previous medical records and patient's girlfriend Sonia Razo [phone] 55-year-old male with history of chronic atrial fibrillation noncompliant with anticoagulation and rate control medications, COPD not oxygen or steroid- dependent, heavy alcohol abuse, heavy smoker, anxiety, depression, was found unresponsive in his apartment by his girlfriend who stated that he was normal 2 days ago, and emergently brought in by ambulance to the ER .EKG showed atrial fibrillation with rapid ventricular response of 170 to 180 bpm, glucose was 85, ammonia of 17 with [place] Coma Scale of 6 on arrival ,only able to move his eyes spontaneously and withdraws to pain. CT of the head without contrast: Encephalomalacia in the right frontal pole from old completed infarct and multiple lucencies in bilateral cerebellar hemispheres from old infarcts no vascular territory or other acute infarct intracranial hemorrhage mass or mass- effect, ventriculomegaly with proportionate atrophy although that atrophy is much greater than I would expect for the stated age, right maxillary left sphenoid sinus mucosal thickening with other sinuses and mastoids clear skull base and calvarium without acute finding. CT angio of the head with contrast: There is occlusion of the distal right vertebral artery slow flow is identified in the distal left vertebral artery there is occlusion of the basilar artery minor collateral flow is present in the basilar tip. CT angio of the neck shows nonocclusive clot floating within the lumen of the proximal left subclavian artery. No flow is identified in the distal right vertebral artery beginning at the C1 level. Right internal carotid artery has atherosclerotic calcifications at the right carotid bifurcation and within the proximal right internal carotid artery causing approximately 40% stenosis of the right ICA origin there is severe stenosis of the right external carotid artery. There is critical stenosis and near occlusion of the left external carotid artery origin the right vertebral artery is severely hypoplastic no flow is identified in the distal right vertebral artery beginning at the C1 level. Lungs mild centrilobular emphysema is present in upper lobes. CT cervical spine no acute fracture or dislocation. This case was discussed by emergency room physician Dr. Kameron Desai with Dr. Asif Constantino neurologist on-call at [facility] as well as with [facility] in [place] stroke center with recommendations to keep the patient at [facility] since thrombectomy would not be possible and no transfer to a tertiary level of care was needed. 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 PAST MEDICAL HISTORY: chronic atrial fibrillation noncompliant with anticoagulation and rate control medications, COPD not oxygen or steroid-dependent, heavy alcohol abuse, heavy smoker, anxiety, depression PAST SURGICAL HISTORY: Bilateral knee replacement SOCIAL HISTORY: Lives alone has a girlfriend Sonia Razo [phone]. Healthcare proxy Jesus Jr John. son [phone]. Ex-/ Angela John [phone] According to patient's prior wishes MOLST form signed by patient's son Carroll Jr Destinee. DO NOT RESUSCITATE DO NOT INTUBATE FAMILY HISTORY: Unable to be obtained since the patient is unresponsive ALLERGIES: Please see below. REVIEW OF SYSTEMS: Unable to be obtained since the patient is unresponsive HOME MEDICATIONS: Please see below. PHYSICAL EXAMINATION: VITAL SIGNS: See below GENERAL APPEARANCE: [place] Coma Scale of 6. Able to open his eyes spontaneously and withdraws to pain Disheveled. No pallor or icterus. Mild distress nasal cannula. Left nasal trumpet HEENT: Face is symmetric unable to protrude his tongue and follow commands. No JVD no thyromegaly no cervical lymphadenopathy Faint right carotid bruit. CARDIOVASCULAR: S1-S2 irregularly irregular tachycardic no murmurs noted LUNGS: Diminished breath sounds bilateral rhonchi prolonged expiration ABDOMEN: Positive bowel sounds soft nontender nondistended bowel no rebound guarding no abdominal bruit EXTREMITIES: No cyanosis clubbing or pitting edema NEUROLOGICAL: Face is symmetric [place] Coma Scale of 6 able to open his eyes spontaneously and withdraws to pain but does not follow commands quadriplegic 0 out of 5 motor function bilateral upper and lower extremities positive Babinski bilaterally with upgoing toes. LABORATORY DATA: See below. IMAGING: See below MICROBIOLOGY: Please see below. ASSESSMENT: 55-year-old male with history of alcohol abuse, heavy tobacco abuse, noncompliant with anticoagulation and rate control medications for chronic a trial fibrillation, anxiety and depression, COPD not oxygen or steroid-dependent brought in by ambulance after being found unresponsive at home was last seen to be normal 2 days ago by his girlfriend. 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 CT angio of the head with contrast: There is occlusion of the distal right vertebral artery slow flow is identified in the distal left vertebral artery there is occlusion of the basilar artery minor co llateral flow is present in the basilar tip. -NPO. MRI of the brain ordered. Neurology Dr. CONSTANTINO consulted. Aspiration and seizure precautions. IV fluids for permissive hypertension to keep blood pr essure 160 to 180 mmHg. Aspirin rectally or via nasogastric tube. Neurochecks every 4 hourly. Await recommendations from neurologist regarding need for anticoagulation, antiepileptic drugs if needed. Patient is not eligible for thrombectomy per [facility] stroke [place]. Acute encephalopathy secondary to CVA -CVA management. Aspiration risk. Central line placement for now for IV fl uids, IV antibiotics, IV Cardizem drip. -Will need feeding tube and tube feedings in the future if no improvement. Check urine toxicology screen Atrial fibrillation with rapid ventricular response -IV Cardizem 20 mg bolus followed by titration of Cardizem 5 mg to 15 mg for rate control less than 100 bpm. - If needed, Increase IV fluids or may need Levophed drip to maintain systolic blood pressure greater than 160 for permissive hypertension. Sepsis -Elevated white count fever and lactic acidosis empiric antibiotics with IV Vanco and Zosyn. -Patient most likely aspirated due to CVA. Aspiration pneumonitis -Secondary to acute CVA and encephalopathy. Aspiration precautions. Empiric IV Vanco and Zosyn for sepsis. No definite consolidation on chest x-ray. -Supplemental oxygen to keep O2 sat greater than 90% head of bed elevation greater than 30 degrees -Frequent suctioning due to malclearance of secretions from CVA Malclearance of secretions -Due to CVA -Frequent suctioning -Head of bed elevation to decrease risk of recurrent aspiration -We will need a feeding tube in the future if no recovery from CVA Left subclavian artery thrombus - CT angio of the neck shows nonocclusive clot floating within the lumen of the proximal left subclavian artery. No flow is identified in the distal right vertebral artery beginning at the C1 level. Right internal carotid artery has atherosclerotic calcifications at the right carotid bifurcation and within the proximal right internal carotid artery causing approximately 40% stenosis of the right ICA origin there is severe stenosis of the right external carotid artery. There is critical stenosis and near occlusion of the left external carotid artery origin the right vertebral artery is severely hypoplastic no flow is identified in the distal right vertebral artery beginning at the C1 level. -Defer to neurologist for type of anticoagulation either intravenous heparin or Lovenox -Hypercoagulable state work-up sent -Echocardiogram with bubble study. Defer to neurologist if transesophageal echocardiogram is warranted in light of patient's poor overall prognosis. COPD, compensated -Xopenex every 4 hourly nebulizers. Alcohol abuse -DT precautions Active tobacco abuse -Nicotine patch Diet n.p.o. D5 half-normal saline at 100 mL's per hour. [employer] Negative consult TPN versus tube feeding via nasogastric tube for now. If no improvement patient may need a PEG tube DVT prophylaxis: Await recommendation from neurologist regarding anticoagulation. CODE STATUS: DO NOT RESUSCITATE DO NOT INTUBATE Healthcare proxy: Patient's son Danyel Lopez Jr.[phone]. Per patient's prior wishes and healthcare proxy' consent, HIPAA protected medical information may be shared with: Patient's girlfriend girlfriend Sonia Razo [phone]. Patient's ex-/ Angela Lopez [phone] Vital Signs Vital Signs Date Time Temp Pulse Resp B/P (MAP) Pulse Ox O2 Delivery O2 Flow Rate FiO2 05/19/21 20:19 100.9 28 96 Nasal Cannula 2.0 05/19/21 20:15 132 121/61 (81) Laboratory Data Labs 24H Laboratory Tests 2 05/19/21 15:46: POC Glucose (Misc Panel) 96, POC Sodium (Misc Panel) 142, POC Potassium (Misc Panel) 3.6, POC Chloride (Misc Panel) 102, POC Total CO2 (Misc Panel) 21.0L, POC Blood Urea Nitrogen (Misc Panel 18, POC Ionized Calcium (Misc Panel) 4.2L, POC Creatinine (Misc Panel) 1.0, POC Hematocrit (Misc Panel) 58.0H 05/19/21 15:51: Prothrombin Time 15.1H, Prothromb Time International Ratio 1.16, Activated Partial Thromboplast Time 29.3 05/19/21 15:53: Neutrophils (%) (Auto) , Nucleated Red Blood Cells % (auto) 0.0, Neutrophils 75H, Band Neutrophils 1, Lymphocytes (Manual) 13L, Monocytes (Manual) 6H, Atypical Lymphocytes 5, Platelet Estimate NORMAL, Urine Color MEMO, Urine Appearance HAZY, Urine pH 5.0, Urine Specific [place] 1.020, Urine Protein NEGATIVE, Urine Glucose (UA) NEGATIVE, Urine Ketones TRACEH, Urine Blood NEGATIVE, Urine Nitrite NEGATIVE, Urine Bilirubin 1+H, Urine Urobilinogen 4.0H, Urine Leukocyte Esterase NEGATIVE, Urine WBC (Auto) 2, Urine RBC (Auto) 3, Urine Hyaline Casts (Auto) 7, Urine Bacteria (Auto) NEGATIVE, Urine Squamous Epithelial Cells 0, Urine Mucus (Auto) MODERATE, Urine Sperm (Auto) , Anion Gap 15, Glomerular Filtration Rate > 60.0, Lactic Acid Level 2.7*H, Calcium Level 8.2L, Total Bilirubin 1.6H, Direct Bilirubin 0.6H, Aspartate Amino Transf (AST/SGOT) 62H, Alanine Aminotransferase (ALT/SGPT) 27, Alkaline Phosphatase 95, Ammonia 17, Total Creatine Kinase 1828H, Creatine Kinase MB 15.0H, Creatine K inase MB Relative Index 0.82, Troponin I < 0.02, Total Protein 7.2, Albumin 2.8L, Albumin/Globulin Ratio 0.6, Thyroid Stimulating Hormone (TSH) 0.937, Salicylates Level < 1.7L, Urine Opiates Screen NEGATIVE, Urine Methadone Screen NEGATIVE, Acetaminophen Level < 2.0L, Urine Barbiturates Screen NEGATIVE, Urine Phencyclidine Screen NEGATIVE, Urine Amphetamines Screen NEGATIVE, Urine Benzodiazepines Screen NEGATIVE, Urine Cocaine Metabolite Screen NEGATIVE, Urine Cannabinoids Screen NEGATIVE, Ethyl Alcohol Level 0.004, Coronavirus (COVID- 19)(PCR) NEGATIVE, Hepatitis B Surface Antigen NEGATIVE, Hepatitis C Antibody Index 0.0, HIV Antigen/Antibody Combo Qual NEGATIVE, Influenza Type A (RT-PCR) NEGATIVE, Influenza Type B (RT-PCR) NEGATIVE, Respiratory Syncytial Virus (PCR) NEGATIVE 05/19/21 15:56: POC Total CO2 (Misc Panel) 19.0L, POC pH (Misc Panel) 7.413, POC Base Excess (Misc Panel) -7.0L, POC Saturated Percent O2 (Misc) 98, POC pO2 (Misc Panel) 101.0, POC pCO2 (Misc Panel) 28.1L, POC HCO3 (Misc Panel) 17.9L 05/19/21 17:55: POC Prothrombin Time (Misc) 15.9H, POC INR (Misc) 1.3 05/19/21 20:03: Lactic Acid Level 3.5*H CBC/BMP Laboratory Tests 05/19/21 15:53 Microbiology Microbiology 05/19/21 Blood Culture, Received Pending 05/19/21 Blood Culture, Received Pending Home Medications Scheduled Aspirin (Aspirin EC) 81 Mg Tablet.dr, 81 MG PO DAILY Gabapentin (Gabapentin) 400 Mg Capsule, 800 MG PO TID Metoprolol Tartrate (Metoprolol Tartrate) 50 Mg Tablet, 50 MG PO DAILY Miscellaneous Medications [Comments] MED LIST MADE WITH EXTERNAL MED HISTORY Allergies Coded Allergies: No Known Allergies (Unverified , 11/11/20) A-FIB/CHADSVASC A-FIB History Current/History of A-Fib/PAF?: Yes Current PO Anticoag Therapy: No Age/Risk Factor Scoring CHADSVASC: CHADSVASC Response (Comments) Value Age Risk Factor Age < 65 years old 0 Gender Risk Factor Male 0 Hx of CHF No 0 Hx of HTN No 0 Hx of Stroke/TIA/or VTE Yes 2 Hx of Diabetes No 0 Hx of Vascular Disease Yes 1 Total 3 Treatment Treatment ordered: Heparin IV bridge Therapy CORAL SLOAN MD May 19, 2021 22:34
[2021-05-19 23:00] VITALS: BP 148/78
[2021-05-19] MEDS ORDERED: FOLIC ACID 1 MG in NS 50 ML IV SCH (23:00)
--- NOTE | 2021-05-19 23:01 | REPVR ---
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 COMPARISON: CT Head without contrast 05/19/2021 3:25 PM FINDINGS: Multiple foci of abnormal increased diffusion and decreased ADC map signal involving bilateral cerebellar hemispheres, bertin and midbrain, and punctate left occipital and left parietal centrum semiovale lesions. Abnormal gradient echo signal within the left bertin suggests that there may be an element of petechial hemorrhage. Midline structures and cerebellar tonsillar position appear normal. Ventricles, cisterns and sulci are otherwise symmetric and normal for age. No intracranial mass, midline shift or abnormal extra-axial fluid. Old small vessel right frontal lobe infarct. Mild pattern of increased T2 and flair signal in supratentorial white matter. Optic chiasm and pituitary infundibulum appear normal. Normal vascular flow voids in major intracranial arteries and dural venous sinuses. Mild pansinus mucosal thickening is present. Right mastoids are opacified. Optic globes and orbits are unremarkable. IMPRESSION: Multiple acute infarcts involving the cerebellar hemispheres, bertin and midbrain and punctate supratentorial left hemispheric vertex lesions. Possible petechial hemorrhage within the left bertin based on the gradient echo sequence. No evidence of obstructive hydrocephalus Findings were discussed by telephone with Dr. Gambino on 05/19/2021 11:00 PM EDT, to expedite further management. Electronically signed by: Mauricio Bravo On 05/19/2021 23:00:52 PM
[2021-05-19] MEDS: diltiaZEM 125 MG in NS 100 ML IV SCH (23:47)
[2021-05-20] VITALS (8 sets, daily range): BP systolic 137–164; BP diastolic 69–96
[2021-05-20] MEDS: PIPERACILLIN/TAZOBACTAM SOD 4.5 GM in D5W MINI-BAG PLUS 50 ML IV SCH ×3 (00:05→09:23)
[2021-05-20 04:55] LABS: BASO # 0.1 10^3/uL (0.0-0.2); BASO % 0.5 % (0.0-1.0); EOS % 0.1 % (0.0-3.0); HEMATOCRIT 50.3 % (42.0-52.0); HEMOGLOBIN 17.1 g/dl (13.5-17.5); LYMPH # 2.5 10^3/uL (1.5-5.0); MEAN CORPUSCULAR HEMOGLOBIN 33.9 pg (27.0-33.0); MEAN CORPUSCULAR VOLUME 99.8 fl (80.0-96.0); MONO # 2.2 10^3/uL (0.0-0.8); MONO % 14.4 % (2.0-8.0); NEUTROPHILS # 10.4 10^3/uL (1.5-8.5); NEUTROPHILS % 67.8 % (36.0-66.0); PLATELET COUNT, AUTOMATED 203 10^3/uL (150-450); RED BLOOD COUNT 5.04 10^6/uL (4.30-6.10)
[2021-05-20] MEDS: VANCOMYCIN HCL 1,000 MG, VIAL MATE ADAPTER 1 EACH in NS 250 ML IV SCH (05:07)
[2021-05-20 05:27] LABS: WHITE BLOOD COUNT 15.3 10^3/uL (4.0-10.0)
[2021-05-20 05:32] LABS: BLOOD UREA NITROGEN 15 MG/DL (7-18); CALCIUM LEVEL 7.7 MG/DL (8.5-10.1); CARBON DIOXIDE LEVEL 20 MEQ/L (21-32); CHLORIDE LEVEL 115 MEQ/L (98-107); CREATININE FOR GFR 0.87 MG/DL (0.70-1.30); GLOMERULAR FILTRATION RATE > 60.0 (>56); GLUCOSE, FASTING 97 MG/DL (70-100); MAGNESIUM LEVEL 1.9 MG/DL (1.8-2.4); POTASSIUM SERUM 3.5 MEQ/L (3.5-5.1); SODIUM LEVEL 145 MEQ/L (136-145)
[2021-05-20] MEDS: diltiaZEM 125 MG in NS 100 ML IV SCH (08:25)
[2021-05-20] MEDS ORDERED: THIAMINE 200MG/2ML VIAL (J3411 PER 100MG) IV SCH (09:00)
[2021-05-20] MEDS ORDERED: ASPIRIN 300 MG SUPP PR SCH (09:00)
[2021-05-20] MEDS ORDERED: ONDANSETRON 4MG/2ML VIAL IV PRN ×8 (09:35)
[2021-05-20] MEDS ORDERED: BISACODYL 10 MG SUPP PR PRN ×8 (09:35)
[2021-05-20] MEDS ORDERED: ATROPINE SULFATE 1% OP SOLN 2 ML BTL SL PRN ×7 (09:35)
[2021-05-20] MEDS ORDERED: SCOPOLAMINE 1MG TRANSDERMAL PATCH TOP PRN ×8 (09:35)
[2021-05-20] MEDS ORDERED: MORPHINE 2 MG/ML 1ML VIAL (J2270) IV PRN ×7 (09:35)
[2021-05-20] MEDS ORDERED: MORPHINE 10MG/0.5ML ORAL CONCENTRATE SOLUTION U/D SL PRN ×8 (09:35→17:55)
[2021-05-20] MEDS ORDERED: HYOSCYAMINE SULFATE 0.125 MG SUBL TABLET PO PRN ×8 (09:35)
[2021-05-20] MEDS ORDERED: LORazepam 2 MG/ML VIAL IV PRN ×7 (09:35)
--- NOTE | 2021-05-20 09:47 | IPNPDOC ---
Text Note Date of Service The patient was seen on 05/20/21. NOTE I spoke Danyel, the patient's son this morning. And updated him that his dad's mental and neurologic status is remained unchanged since admission. He tells me that the family's goal is keeping his dad comfortable I'm advised them pursue comfort measures only which he is in agreement with. I will also advise him that he is free to come in and visit with his dad at any time as are other family members. Patient will be made comfort measures only at this time all nonessential therapies will be discontinued VS,Fishbone, I+O VS, Fishbone, I+O Laboratory Tests 05/19/21 15:53 05/20/21 04:24 Vital Signs Date Time Temp Pulse Resp B/P (MAP) Pulse Ox O2 Delivery O2 Flow Rate FiO2 05/20/21 08:25 137/80 05/20/21 08:00 2.0 05/20/21 07:00 98.3 92 18 97 Nasal Cannula I&O- Last 24 Hours up to 6 AM 05/20/21 06:00 Intake Total 1000 ml Output Total 950 ml Balance 50 ml ANGELIKA PANDYA MD May 20, 2021 09:47
[2021-05-20] MEDS: MORPHINE 2 MG/ML 1ML VIAL (J2270) IV PRN ×3 (09:55→23:53)
[2021-05-20] MEDS: MORPHINE 10MG/0.5ML ORAL CONCENTRATE SOLUTION U/D SL PRN ×2 (13:11→15:42)
[2021-05-20] MEDS: ATROPINE SULFATE 1% OP SOLN 2 ML BTL SL PRN ×2 (15:42→23:54)
--- NOTE | 2021-05-20 17:24 | ECHO ---
ECHOCARDIOGRAM DATE OF PROCEDURE: 05/19/2021 Age: 35 Gender: Male Height: 71 inches Weight: 187 pounds Body surface area: 2.05 m2 Inpatient intensive care unit (ICU) room 3206 REFERRING PHYSICIAN: Dr. Samira Altman INDICATION: Cerebrovascular accident (CVA). MEASUREMENTS: 2D Measurements: RV - 3.4 cm LV - 4.3 cm Septum 1.2 cm Posterior wall 1.2 cm Aortic root 3.8 cm LA - 4.8 cm LVEF 65% Doppler Measurements: AV - 1.28 m/s LVOT - 1.0 m/s MV - E 59 Early mitral de-acceleration time 201 msec E prime medial 9.6 E prime lateral 10 Average E/E prime ratio 9.8/PCWP - 9.4 mmHg PV - 0.8 m/s Pulmonary artery acceleration time 113 msec RVSP 35 mmHg IVC - 1.8 cm COMMENTS: Underlying atrial fibrillation with somewhat rapid ventricular response. No intraventricular conduction disturbance. Technically difficult study, but some diagnostic useful information was still obtained. M-mode and 2-dimensional echocardiography was performed with pulse, continuous wave, color flow, and tissue Doppler studies. Borderline concentric left ventricular hypertrophy with normal wall motion. Moderately dilated left atrium with currently normal estimated mean left atrial pressure. Normal right ventricular size and motion with right atrium mildly dilated but normal inferior vena cava (IVC) size and collapse against an elevated central venous pressure. Mild pulmonary hypertension. Normal aortic dimensions. Mild aortic valvular sclerosis without functional abnormality. Mild mitral annular thickening without functional abnormality. Normal-appearing tricuspid valve with very mild insufficiency. No apparent intracardiac mass or pericardial effusion. Saline contrast study was performed from the apical 4-chamber projection using bolus injection of agitated saline into a large 4M vein. Good opacification was observed of the right heart chambers without any evidence of saline contrast to the left ventricle. Undoubtedly this patient's nonhemorrhagic cerebrovascular accident (CVA) was related to his atrial fibrillation.
--- NOTE | 2021-05-20 20:42 | CR ---
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 HISTORY OF PRESENT ILLNESS: Danyel Lopez is a 55-year-old man with history of chronic atrial fibrillation, noncompliant with anticoagulation and cardiac medications, COPD, alcohol abuse, smoking, anxiety, depression, who was found unresponsive in his apartment by his girlfriend who stated that he was last known normal two days ago. He was brought to emergency department at [facility] by EMS. EKG showed atrial fibrillation with rapid ventricular response, heart rate 170-180. Blood glucose was 85 and ammonia was 17 with GCS score of 6 upon arrival. He was only able to move his eyes vertically. He did not withdraw to pain. He was unable to move any of his extremities. Patient was unable to speak and provide any history. He was diagnosed with quadriplegia, locked-in syndrome, possible sepsis due to aspiration, atrial fibrillation with rapid ventricular response. CT scan of head reportedly showed chronic bilateral cerebellar strokes with small vessel ischemic disease of brain without acute disease. On my review, it showed subacute bilateral pontine and lower mid-brain ischemic strokes and bilateral cerebellar subacute ischemic strokes. CTA of head and neck showed occlusion of basilar artery, atherosclerosis of internal carotid arteries with severe stenosis of right external carotid artery. CT angiography of neck showed nonocclusive clot floating within the lumen of proximal left subclavian artery. I recommended for patient to have urgent MRI scan of brain and discussion with [facility] for transfer. [facility] declined transfer, stating that would not be able to add anything more to his care. Mechanical thrombectomy would not be an option. They recommended keeping patient at [facility]. Later at night, his MRI scan of brain was completed which I reviewed and confirmed my findings of CT scan of head showing bilateral pontine, lower mid-brain bilateral cerebellar, left occipital and parietal acute ischemic strokes. Anticoagulation would not help his current event. We started him on aspirin 300 mg per rectally daily until discussion is made in the daytime about comfort measures. He was DNR/DNI last night. PAST MEDICAL HISTORY: 1. Chronic atrial fibrillation, noncompliant with anticoagulation and cardiac medications. 2. Alcohol abuse. 3. Smoking. 4. Anxiety. 5. Depression. 6. COPD. 7. Bilateral knee replacement. SOCIAL HISTORY: He lives alone with his girlfriend. Patient was made DO NOT RESUSCITATE AND DO NOT INTUBATE. He is a heavy alcohol and tobacco abuser. FAMILY HISTORY: Could not be obtained. REVIEW OF SYSTEMS: Could not be obtained. ALLERGIES: None. HOME MEDICATIONS: 1. Aspirin 81 mg p.o. daily. 2. Gabapentin 800 mg p.o. t.i.d. 3. Metoprolol 50 mg p.o. daily. PHYSICAL EXAMINATION: VITAL SIGNS: Temperature 98.3, pulse 92, respiratory rate 18, blood pressure 144/74, 97% saturation on two liters nasal cannula oxygen. HEART: Irregularly irregular. LUNGS: Clear to auscultation. ABDOMEN: Nondistended. EXTREMITIES: No pedal edema. MUSCULOSKELETAL: No abnormalities. NEUROLOGICAL: Patient is awake and it is difficult to assess his mentation. He does not follow any commands. He does not withdraw to pain on the left side. He withdraws right arm and left slightly to pain. He is nonverbal. He does not speak or understand speech. His plantars are mute. Sensory, cerebellar and gait testing could not be performed. ASSESSMENT: 1. 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 2. Bilateral large anterior pontine, lower mid-brain, bilateral cerebellar, left occipital and parietal ischemic strokes resulting in above. 3. Atrial fibrillation with noncompliance to cardiac medications and anticoagulation. 4. Alcohol and tobacco abuse. PLAN: 1. After discussion with patient's healthcare proxy, the patient has rightfully been made comfort measures only. He was made DNR and DNI last night appropriately. 2. His prognosis is guarded-poor. He has very high risk of going into chronic vegetative state with continuation of medical care. The risk of permanent locked in state is very high as well.
--- NOTE | 2021-05-20 21:21 | ECGEPIP ---
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
[2021-05-21] MEDS: LORazepam 2 MG/ML VIAL IV PRN ×2 (03:14→22:49)
[2021-05-21] MEDS: ATROPINE SULFATE 1% OP SOLN 2 ML BTL SL PRN (03:16)
[2021-05-21] MEDS: MORPHINE 2 MG/ML 1ML VIAL (J2270) IV PRN ×4 (08:53→20:22)
--- NOTE | 2021-05-21 09:17 | IPNPDOC ---
Subjective Date Seen The patient was seen on 05/21/21. Subjective Chief Complaint/HPI Neuro status is unchanged this morning. Objective Physical Examination General Exam: Positive: Other (acute encephalopathy) Eye Exam: Positive: Other Eye Symptoms (PERRL) ENT Exam: Positive: Atraumatic Neck Exam: Positive: Supple Chest Exam: Positive: Rhonchi Heart Exam: Positive: Irregular Rhythm Abdomen Exam: Positive: Normal bowel sounds Skin Exam: Negative: Rash Neuro Exam: Positive: Other (nor exam is unchanged from previous day. 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 Per patient's prior wishes and healthcare proxy' consent, HIPAA protected medical information may be shared with: Patient's girlfriend girlfriend Sonia Razo [phone]. 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 All specim... ANGELIKA PANDYA MD May 21, 2021 09:17
[2021-05-22] MEDS: LORazepam 2 MG/ML VIAL IV PRN ×2 (02:41→09:42)
[2021-05-22] MEDS: ATROPINE SULFATE 1% OP SOLN 2 ML BTL SL PRN (02:41)
[2021-05-22] MEDS: MORPHINE 2 MG/ML 1ML VIAL (J2270) IV PRN (09:29)
[2021-05-22] MEDS ORDERED: LORazepam 2 MG/ML VIAL As Ordered ONE (09:38)
--- NOTE | 2021-05-22 11:31 | IPNPDOC ---
Subjective Date Seen The patient was seen on 05/22/21. Subjective Chief Complaint/HPI Danyel remains encephalopathic and unresponsive. He has no appreciable change in his acute neurologic condition Objective Physical Examination General Exam: Positive: Other (acute encephalopathy) Eye Exam: Positive: Other Eye Symptoms (PERRL) ENT Exam: Positive: Atraumatic Neck Exam: Positive: Supple Chest Exam: Positive: Rhonchi Heart Exam: Positive: Irregular Rhythm Abdomen Exam: Positive: Normal bowel sounds Skin Exam: Negative: Rash Neuro Exam: Positive: Other (nor exam is unchanged from previous day. 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 Per patient's prior wishes and healthcare proxy' consent, HIPAA protected medical information may be shared with: Patient's girlfriend girlfriend Sonia Bowenjulissa [phone]. 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 All Specime... ANGELIKA PANDYA MD May 22, 2021 11:31
[2021-05-22] MEDS ORDERED: MORPHINE 4 MG/ML 1ML VIAL/SYRINGE (J2270) IV PRN (11:35)
--- NOTE | 2021-05-23 09:55 | DSES ---
DISCHARGE SUMMARY DATE OF ADMISSION: 05/19/2021 DATE OF DISCHARGE: 05/22/2021 DISCHARGE DIAGNOSES: 1. Acute bilateral cerebrovascular accidents (CVAs) with locked-in syndrome/quadriplegia. 2. Acute encephalopathy secondary to CVA. 3. Atrial fibrillation with rapid ventricular response, noncompliant with anticoagulation. 4. Aspiration pneumonitis with sepsis. 5. Left subclavian artery thrombus. 6. Patient during this hospitalization. PROCEDURES: None. CONSULTANTS ON THE CASE: Asif Constantino M.D., neurology. DIS[place]: [facility] [place] [facility] [place]: Patient . LABORATORY DATA: White count 15.3, hemoglobin 17, hematocrit 50, platelet count 203. Sodium 145, potassium 205, chloride 115, bicarbonate 20, anion gap 10, BUN 15, creatinine 0.87. Lactic acid on admission was 2.7. Ammonia level was 17. CPK was 1828. Urine drug screen was negative. Alcohol was 0.004. Acetaminophen level was less than 2. Salicylate level was less than 1.7. Urinalysis was unremarkable. Coags: INR 1.16. COVID swab was negative. Hepatitis panel was negative. IMAGING STUDIES: Obtained during the patient's hospital stay included a CT scan of the head with contrast. This showed encephalomalacia in the right frontal pole from old complete infarction and multiple lucencies in the bilateral cerebral hemorrhages from old infarctions. No vascular territory or other acute infarction, intracranial hemorrhage, mass or mass effect, ventriculomegaly with proportionate atrophy, although that atrophy was much greater than I would expect for the stated age, right maxillary and left sphenoid mucosal thickening with the other sinuses and mastoid clear, skull base and calvarium without acute findings. Chest x-ray: Note curvilinear fibrotic or atelectatic change in the left base just above the diaphragm not present on previous study from months ago. No dense consolidation. CT of the cervical spine showed no acute fracture. CTA of the head and neck: This showed occluded basilar artery, collateral flow is present at the basilar tip and bilateral posterior cerebral arteries, occluded right distal vertebral artery. Nonocclusive clot floating within the lumen of the proximal left subclavian artery. No flows identified in the distal right vertebral artery beginning at the C1 level. MRI of the brain showed multiple acute infarctions involving the cerebellar hemispheres, bertin, the mid brain, a punctate, and left hemispheric vertex lesions, possible petechial hemorrhage with the left bertin based on the gradient echo sequence. DISCHARGE MEDICATIONS: None. DISCHARGE INSTRUCTIONS: None FOLLOWUP LABORATORIES: None HOSPITAL COURSE: Mr. Lopez is a 55-year-old gentleman with history of chronic atrial fibrillation who was noncompliant with anticoagulation and has had previous strokes. He presented to the hospital with altered mental status. He was found to have bilateral cerebrovascular accidents (CVAs) with acute encephalopathy with Peytona Coma Score (GCS) less than 5. Patient was screened by [facility], who felt that he was not a candidate for any procedure. The patient was admitted to the hospitalist service. Dr. Constantino was consulted and recommended that patient be comfort measures. Discussion was had with the family. The patient was made comfort measures and on 05/22/2021 at 1340. A total of 30 minutes was spent completing all discharge paperwork. BOBBY
== END 2021-05-22 14:47 | disposition expired | DRG 720 ==
LOC: M ED 15:07 → EDBD 15:07 → M ED INP 19:08 → M ICU 23:15 → M MSPAV 05-20 11:44
PROVIDERS: ADMIT General Practice; ATTEND Internal Medicine
DX: A41.9 Sepsis, unspecified organism (principal); J69.0 Pneumonitis due to inhalation of food and vomit; I63.523 Cerebral infarction due to unspecified occlusion or stenosis of bilateral anterior cerebral arteries; I63.543 Cerebral infarction due to unspecified occlusion or stenosis of bilateral cerebellar arteries; G93.40 Encephalopathy, unspecified; G82.50 Quadriplegia, unspecified; G83.5 Locked-in state; I82.B12 Acute embolism and thrombosis of left subclavian vein; M62.82 Rhabdomyolysis; I48.20 Chronic atrial fibrillation, unspecified; I65.23 Occlusion and stenosis of bilateral carotid arteries; R40.2363 Coma scale, best motor response, obeys commands, at hospital admission; Z51.5 Encounter for palliative care; Z66 Do not resuscitate; F10.10 Alcohol abuse, uncomplicated; F17.200 Nicotine dependence, unspecified, uncomplicated; F41.9 Anxiety disorder, unspecified; F32.9 Major depressive disorder, single episode, unspecified; J44.9 Chronic obstructive pulmonary disease, unspecified; Z91.14 Patient's other noncompliance with medication regimen; Z96.653 Presence of artificial knee joint, bilateral